=== PATIENT | female | born 1950 | race Caucasian/White ===

== ENCOUNTER 2018-04-12 17:03 | Outpatient (CLI) | payer MEDICARE | END 2018-04-12 17:04 | disposition critical access hospital (66) | LOC: EMS 17:03 | PROVIDERS: ATTEND Surgery | DX: R55 Syncope and collapse (principal); R41.0 Disorientation, unspecified; R53.1 Weakness | CPT/HCPCS: A0425; A0427 ==

== ENCOUNTER 2018-04-12 17:44 | Emergency (ER) | payer MEDICARE ==
[2018-04-12 18:15] LABS: BASOPHILS # (AUTO) 0.1 10^3/uL (0.0-0.1); BASOPHILS % (AUTO) 0.4 %; EOSINOPHILS % (AUTO) 0.3 %; HGB - HEMOGLOBIN 12.7 g/dL (12.0-16.0); LYMPHOCYTES # (AUTO) 0.6 10^3/uL (1.5-3.5); LYMPHOCYTES % (AUTO) 4.3 %; MEAN CORPUSCULAR VOLUME 97.2 fL (81.0-99.0); MEAN PLATELET VOLUME 6.8 fL (7.9-10.8); MONOCYTES # (AUTO) 0.8 10^3/uL (0.0-1.0); MONOCYTES % (AUTO) 5.4 %; NEUTROPHILS # (AUTO) 13.2 10^3/uL (1.5-6.6); NEUTROPHILS % (AUTO) 89.6 %; PLT - PLATELET COUNT 343 10^3/uL (130-450); RED BLOOD COUNT 3.86 10^6/uL (4.20-5.40); RED CELL DISTRIBUTION WIDTH 12.2 % (12.0-15.0); WHITE BLOOD COUNT 14.7 x10^3/uL (4.8-10.8)
[2018-04-12 18:30] LABS: ALBUMIN 3.8 g/dL (3.2-5.5); ALBUMIN/GLOBULIN RATIO 1.3 (1.0-2.2); BILIRUBIN,TOTAL 0.6 mg/dL (0.2-1.0); CREATININE 1.4 mg/dL (0.4-1.0); TOTAL PROTEIN 6.7 g/dL (6.7-8.2)
--- NOTE | 2018-04-12 19:28 | XRAY Report ---
Procedure Date: 04/12/2018 Accession Number: [id number] / [id number] Procedure: XR - Chest 2 View X-Ray CPT Code: 69310 FULL RESULT: EXAM: CHEST RADIOGRAPHY EXAM DATE: 04/12/2018 06:41 PM. CLINICAL HISTORY: Near syncope. COMPARISON: Chest radiograph 06/11/2013. TECHNIQUE: 2 views. FINDINGS: Lungs/Pleura: Increased lung markings. No focal opacities. No effusions. Mediastinum: Stable Other: Cholecystectomy clips. Diffuse idiopathic skeletal hyperostosis IMPRESSION: Suspect underlying airways disease RADIA
[2018-04-12 19:45] VITALS: BP 111/60
[2018-04-12] MEDS ORDERED: SODIUM CHLORIDE 0.9% 1,000 ML IV ONE (19:52)
--- NOTE | 2018-04-12 19:52 | ED Physician Documentation ---
History of Present Illness - Stated complaint Stated Complaint: NEAR SYNCOPE - Chief complaint Chief Complaint: Cardiac - History obtained from History obtained from: Patient, EMS - History of Present Illness Timing: Today Pain level max: 0 Pain level now: 0 Improved by: rest, IVF Worsened by: straining for BM - Additonal information Additional information: Patient is a 67 year old female [place] felt lightheaded and vision dimmed. States that this has happened several times in the past with no cause found. Feeling normal now. Received IVF with EMS. Initial BP was 60/p. Review of Systems Ten Systems: 10 systems reviewed and negative Constitutional: denies: Fever, Chills Ears: denies: Ear pain Nose: denies: Rhinorrhea / runny nose, Congestion Throat: denies: Sore throat Cardiac: denies: Chest pain / pressure Respiratory: denies: Cough GI: denies: Abdominal Pain, Nausea, Vomiting, Diarrhea Skin: denies: Rash Musculoskeletal: denies: Neck pain, Back pain Neurologic: denies: Headache PD PAST MEDICAL HISTORY - Past Medical History Cardiovascular: Hypertension, High cholesterol Psych: Depression - Past Surgical History Past Surgical History: Yes General: Cholecystectomy - Present Medications Home Medications: Ambulatory Orders Medication Instructions Recorded Confirmed Losartan [Cozaar] 25 mg PO ONCE 06/10/13 06/10/13 OLANZapine [ZyPREXA] 2.5 mg PO ONCE 06/10/13 06/10/13 Simvastatin 20 mg PO 06/10/13 06/10/13 FLUoxetine [PROzac] 04/12/18 Losartan [Cozaar] 04/12/18 Spironolactone 04/12/18 - Allergies Allergies/Adverse Reactions: Allergies Allergy/AdvReac Type Severity Reaction Status Date / Time No Known Drug Allergies Allergy Verified 04/12/18 17:50 - Social History Does the pt smoke?: No Smoking Status: Never smoker Does the pt drink ETOH?: Yes Does the pt have substance abuse?: No PD ED PE NORMAL - Vitals Vital signs reviewed: Yes - General General: Alert and oriented X 3, No acute distress, Well developed/nourished - HEENT HEENT: Atraumatic, PERRL, Moist mucous membranes, Pharynx benign - Neck Neck: Supple, no meningeal sign, No JVD, No bruit - Cardiac Cardiac: RRR, No murmur, Strong equal pulses - Respiratory Respiratory: No respiratory distress, Clear bilaterally - Abdomen Abdomen: Soft, Non tender, Non distended - Back Back: No spinal TTP - Derm Derm: Warm and dry, No rash - Extremities Extremities: No edema, No calf tenderness / cord - Neuro Neuro: Alert and oriented X 3, nursing unit clerk 2-12 intact, No motor deficit, No sensory deficit, Normal speech - Psych Psych: Normal mood, Normal affect Results - Vitals Vitals: Oxygen O2 Source Room air - EKG (time done) 1751 Rate: Rate (enter#) (55) Rhythm: NSR, Other (PVC) [place]: Normal Intervals: Normal NV QRS: Normal Ischemia: Normal ST segments - Labs Labs: Laboratory Tests 04/12/18 04/12/18 04/12/18 18:08 18:08 18:08 WBC 14.7 H RBC 3.86 L Hgb 12.7 Hct 37.5 MCV 97.2 MCH 33.0 H MCHC 34.0 RDW 12.2 Plt Count 343 MPV 6.8 L Neut # (Auto) 13.2 H Lymph # (Auto) 0.6 L [place] # (Auto) 0.8 Eos # (Auto) 0.0 Baso # (Auto) 0.1 Absolute Nucleated RBC 0.01 Nucleated RBC % 0.0 Sodium 137 Potassium 3.8 Chloride 105 Carbon Dioxide 22 Anion Gap 10.0 BUN 27 H Creatinine 1.4 H Estimated GFR (MDRD) 37 L Glucose 130 H Calcium 9.0 Total Bilirubin 0.6 AST 21 ALT 18 Alkaline Phosphatase 95 Troponin I < 0.04 Total Protein 6.7 Albumin 3.8 Globulin 2.9 Albumin/Globulin Ratio 1.3 Lipase 39 - Rads (name of study) cxr. Radiology: Prelim report reviewed, EMP read contemporaneously, See rad report ( no acute abnormality) PD MEDICAL DECISION MAKING - ED course Complexity details: reviewed results, re-evaluated patient, considered differential, d/w patient, d/w family ED course: Patient is a 67-year-old female who presents to the emergency department after what sounds like a near syncopal episode secondary to vasovagal near syncope. She feels much better after IV fluids. Tolerating p.o. without difficulty. This is been an ongoing issue for her in the past. Has had multiple workups with no cause found. Has had normal echocardiograms and telemetry monitoring in the past. We will have her follow-up with her doctor for further evaluation and care. Patient and family counseled regarding signs and symptoms for which I believe and urgent re-evaluation would be necessary. Patient with good understanding of and agreement to plan and is comfortable going home at this time This document was made in part using voice recognition software. While efforts are made to proofread this document, sound alike and grammatical errors may occur. - Sepsis Event Vital Signs: Oxygen O2 Source Room air Departure - Departure Disposition: 01 Home, Self Care Clinical Impression: Vasovagal near syncope Condition: Good Instructions: ED Near Syncope Vasovagal Follow-Up: Candi Roberts MD [Primary Care Provider] - Within 1 week Comments: Follow up with your doctor in the next week for further evaluation. Drink plenty of fluid at home. Return if you worsen. Discharge Date/Time: 04/12/18 20:19
== END 2018-04-12 20:19 | disposition home or self-care (01) ==
LOC: ED 17:44
DX: R55 Syncope and collapse (principal); I10 Essential (primary) hypertension; I49.3 Ventricular premature depolarization
CPT/HCPCS: 36415; 71046; 80053; 83690; 84484; 85025; 93005; 99283; 99284